=== PATIENT | female | born 1935 | race Caucasian/White ===

== ENCOUNTER → 2016-12-21 | Outpatient (CLI) | payer MEDICARE ==
[~2016-12-21] MED LIST: AVELOX400 MG PO; CALCIUM 500 + D1 TAB PO; CENTRUM SILVER1 TA2 PO; DARVOCET N 1001 TAB PO; DAYPRO600 M1 PO; DIOVAN HCT 12.51 TA2 PO; HYDROCODONE BIT1 T11 PO; MEDROL DOSEPAK4 MG PO; NORFLEX100 MG PO; PRAVACHOL40 MG PO; PREDNICOT20 MG PO; PROMETHAZINE D118 ML PO; TOPROL XL50 MG PO; TRAMADOL50 MG PO
== END | disposition home or self-care (01) ==
LOC: RAD 10:32
DX: Z13.820 Encounter for screening for osteoporosis (principal); Z78.0 Asymptomatic menopausal state; Z90.710 Acquired absence of both cervix and uterus

== ENCOUNTER 2017-12-21 12:48 | Emergency (ER) | payer MEDICARE ==
[~2017-12-21] VITALS: Ht 162.5 cm; Wt 81.6 kg
[2017-12-21 12:50] VITALS: BP 142/75
[2017-12-21] MEDS ORDERED: CEPHALEXIN500 M1 PO (13:32)
== END 2017-12-21 13:19 | disposition home or self-care (01) ==
LOC: ED 12:48
DX: L25.9 Unspecified contact dermatitis, unspecified cause (principal); Z88.0 Allergy status to penicillin; Z79.899 Other long term (current) drug therapy; Z90.710 Acquired absence of both cervix and uterus; Z90.49 Acquired absence of other specified parts of digestive tract

== ENCOUNTER → 2018-01-11 | Outpatient (CLI) | payer MEDICARE ==
[~2018-01-11] MED LIST changes: +CEPHALEXIN500 M1 PO
== END | disposition home or self-care (01) ==
LOC: CARD 07:20
DX: I35.0 Nonrheumatic aortic (valve) stenosis (principal); I34.0 Nonrheumatic mitral (valve) insufficiency

== ENCOUNTER → 2018-01-12 | Outpatient (CLI) | payer MEDICARE | END | disposition home or self-care (01) | LOC: US 14:39 | DX: M79.605 Pain in left leg (principal); R60.0 Localized edema ==

== ENCOUNTER 2019-10-05 20:02 | Emergency (ER) | payer MEDICARE ==
[~2019-10-05] VITALS: Ht 160 cm; Wt 77.1 kg
[2019-10-05 22:50] VITALS: BP 147/67
== END 2019-10-06 01:24 | disposition home or self-care (01) ==
LOC: ED 20:02
DX: S92.352A Displaced fracture of fifth metatarsal bone, left foot, initial encounter for closed fracture (principal); I10 Essential (primary) hypertension; M19.90 Unspecified osteoarthritis, unspecified site; E78.00 Pure hypercholesterolemia, unspecified; Z88.0 Allergy status to penicillin; Z79.899 Other long term (current) drug therapy; X58.XXXA Exposure to other specified factors, initial encounter; Y93.89 Activity, other specified; Y92.89 Other specified places as the place of occurrence of the external cause; Y99.8 Other external cause status

== ENCOUNTER 2021-06-03 17:58 | Emergency (ER) | payer MEDICARE ==
[2021-06-03 18:11] VITALS: BP 156/53
== END 2021-06-03 21:28 | disposition home or self-care (01) ==
LOC: ED 17:58
DX: M25.562 Pain in left knee (principal); Z88.0 Allergy status to penicillin; Z79.899 Other long term (current) drug therapy; Z90.710 Acquired absence of both cervix and uterus

== ENCOUNTER 2022-08-22 13:03 | Emergency (ER) | payer MEDICARE ==
[~2022-08-22] VITALS: Ht 160 cm; Wt 82.6 kg
[2022-08-22 13:57] VITALS: BP 105/49
[2022-08-22] MEDS ORDERED: CILOXAN 5 ML5 M1 OP (14:09)
== END 2022-08-22 14:24 | disposition home or self-care (01) ==
LOC: ED 13:03
DX: B30.3 Acute epidemic hemorrhagic conjunctivitis (enteroviral) (principal); I10 Essential (primary) hypertension; M19.90 Unspecified osteoarthritis, unspecified site; E78.00 Pure hypercholesterolemia, unspecified; G62.9 Polyneuropathy, unspecified; Z88.0 Allergy status to penicillin; Z90.710 Acquired absence of both cervix and uterus; Z98.51 Tubal ligation status; Z90.49 Acquired absence of other specified parts of digestive tract; Z98.890 Other specified postprocedural states

== ENCOUNTER 2024-01-21 10:29 | Emergency (ER) | payer MEDICARE ==
[~2024-01-21] VITALS: Ht 162.5 cm; Wt 82.6 kg
[~2024-01-21 10:29] MED LIST changes: +CILOXAN 5 ML5 M1 OP
[2024-01-21 10:57] VITALS: BP 130/74
[2024-01-21] MEDS ORDERED: Synthroid,Levo25 MCG PO (11:02)
[2024-01-21] MEDS ORDERED: SODIUM CHLORIDE 0.9% 1,000 ML IV ONE (11:10)
[2024-01-21] MEDS ORDERED: Albuterol Sulfate 2.5 MG/3 ML VIAL NEB ONE (11:15)
[2024-01-21 11:47] LABS: BASO # 0.1 10*3/uL (0.0-0.1); BASO % 0.6 % (0.0-1.0); EOS # 0.2 10*3/uL (0.0-0.4); EOS % 2.2 % (1.0-4.0); HEMATOCRIT 49.9 % (37.0-47.0); MEAN CELL VOLUME 96.5 fl (81.0-99.0); MEAN CORPUSCULAR HGB 31.9 pg (27.0-31.0); MEAN CORPUSCULAR HGB CONC 33.1 g/dl (33.0-37.0); MEAN PLATELET VOLUME 9.3 fl (9.6-12.3); MONO % 10.5 % (3.0-9.0); NEUT # 5.3 10*3/uL (2.3-7.9); NEUT % 58.3 % (47.0-73.0); PLATELET COUNT AUTOMATED 209 10*3/uL (130-400); RED BLOOD COUNT 5.17 10*6/uL (4.10-5.10); RED CELL DISTRI WIDTH 13.2 % (0-14.5); WHITE BLOOD COUNT 9.1 10*3/uL (4.8-10.8)
[2024-01-21 12:09] LABS: BUN 18 mg/dl (9-23); CHLORIDE 104 mmol/L (98-107); POTASSIUM 3.7 mmol/L (3.4-5.1)
[2024-01-21] MEDS ORDERED: VENT7GM INH (12:23)
[2024-01-21] MEDS ORDERED: LEVOFLOXACIN500 MG PO (12:23)
[2024-01-21] MEDS ORDERED: LEVOFLOXACIN 100 ML IV ONE (12:45)
[2024-01-27] MEDS ORDERED: ROBITUSSIN DM 101 OZ PO (11:45)
[2024-01-27] MEDS ORDERED: ZITHROMAX250 MG PO (11:45)
[2024-01-27] MEDS ORDERED: PREDNISONE10 MG PO (11:45)
== END 2024-01-21 12:30 | disposition home or self-care (01) ==
LOC: ED 10:29
PROVIDERS: Emergency Medicine
DX: J98.4 Other disorders of lung (principal); Z20.822 Contact with and (suspected) exposure to COVID-19; R06.02 Shortness of breath; I10 Essential (primary) hypertension; E03.9 Hypothyroidism, unspecified; M19.90 Unspecified osteoarthritis, unspecified site; E78.00 Pure hypercholesterolemia, unspecified; Z88.0 Allergy status to penicillin; Z90.710 Acquired absence of both cervix and uterus; Z98.890 Other specified postprocedural states; Z90.49 Acquired absence of other specified parts of digestive tract

== ENCOUNTER 2024-08-17 16:41 | Emergency (ER) | payer MEDICARE ==
[~2024-08-17] VITALS: Ht 162.5 cm; Wt 81.6 kg
[~2024-08-17 16:41] MED LIST changes: +LEVOFLOXACIN500 MG PO; +PREDNISONE10 MG PO; +ROBITUSSIN DM 101 OZ PO; +Synthroid,Levo25 MCG PO; +VENT7GM INH; +ZITHROMAX250 MG PO
[2024-08-17 16:52] VITALS: BP 117/64
[2024-08-17 17:16] LABS: BASO % 0.7 % (0.0-1.0); EOS # 0.2 10*3/uL (0.0-0.4); EOS % 3.9 % (1.0-4.0); HEMATOCRIT 42.9 % (37.0-47.0); MEAN CELL VOLUME 95.8 fl (81.0-99.0); MEAN CORPUSCULAR HGB 31.9 pg (27.0-31.0); MEAN CORPUSCULAR HGB CONC 33.3 g/dl (33.0-37.0); MEAN PLATELET VOLUME 9.2 fl (9.6-12.3); MONO # 0.7 10*3/uL (0.1-1.0); MONO % 12.4 % (3.0-9.0); NEUT # 2.6 10*3/uL (2.3-7.9); NEUT % 43.9 % (47.0-73.0); PLATELET COUNT AUTOMATED 146 10*3/uL (130-400); RED BLOOD COUNT 4.48 10*6/uL (4.10-5.10); RED CELL DISTRI WIDTH 13.3 % (0-14.5); WHITE BLOOD COUNT 5.9 10*3/uL (4.8-10.8)
[2024-08-17 17:28] LABS: ACT PARTIAL THROMBO TIME 26.8 SECONDS (20.0-32.1)
[2024-08-17 17:37] LABS: BUN 15 mg/dl (9-23); CHLORIDE 103 mmol/L (98-107); POTASSIUM 3.5 mmol/L (3.4-5.1)
[2024-08-17] MEDS ORDERED: Acetaminophen/Oxycodone 5 MG/325 MG TABLET PO ONE (18:25)
[2024-08-17] MEDS ORDERED: Dexamethasone Sodium Phospha 20 MG/5 ML VIAL IM ONE (18:25)
[2024-08-17] MEDS ORDERED: PERCOCET 5-3251 EACH PO (18:41)
[2024-08-17] MEDS ORDERED: MEDROL DOSEPAK4 MG PO (18:41)
[2024-08-17] MEDS ORDERED: MAGNESIUM OXIDE 400 MG TAB PO ONE (18:45)
== END 2024-08-17 18:48 | disposition home or self-care (01) ==
LOC: ED 16:41
PROVIDERS: Internal Medicine
DX: M19.09 Primary osteoarthritis, other specified site (principal); M79.605 Pain in left leg; E83.42 Hypomagnesemia; Z88.0 Allergy status to penicillin; Z79.899 Other long term (current) drug therapy; Z98.890 Other specified postprocedural states; Z90.710 Acquired absence of both cervix and uterus; Z96.651 Presence of right artificial knee joint; Z90.49 Acquired absence of other specified parts of digestive tract

== ENCOUNTER 2025-02-01 12:41 | Emergency (ER) | payer MEDICARE ==
[~2025-02-01] VITALS: Ht 160 cm; Wt 77.1 kg
[~2025-02-01 12:41] MED LIST changes: +PERCOCET 5-3251 EACH PO
[2025-02-01 12:53] VITALS: BP 124/79
[2025-02-01 13:38] LABS: BASO # 0.1 10*3/uL (0.0-0.1); BASO % 0.7 % (0.0-1.0); EOS # 0.3 10*3/uL (0.0-0.4); EOS % 4.2 % (1.0-4.0); MEAN CELL VOLUME 96.8 fl (81.0-99.0); MEAN CORPUSCULAR HGB 31.6 pg (27.0-31.0); MEAN PLATELET VOLUME 9.3 fl (9.6-12.3); MONO # 1.1 10*3/uL (0.1-1.0); MONO % 15.4 % (3.0-9.0); NEUT # 3.1 10*3/uL (2.3-7.9); NEUT % 46.1 % (47.0-73.0); NUCLEATED RED BLOOD CELL 0.0 % (0.0-0.0); NUCLEATED RED BLOOD CELL 0.0 10*3/uL (0.0-0.0); PLATELET COUNT AUTOMATED 129 10*3/uL (130-400); RED CELL DISTRI WIDTH 13.2 % (0-14.5)
[2025-02-01 13:58] LABS: BUN 18 mg/dl (9-23); CPK 37 U/L (34-171)
[2025-02-01 15:40] LABS: BILIRUBIN Negative (Negative); BLOOD Negative (Negative); CLARITY Clear (Clear); COLOR Yellow (Yellow); KETONE Negative (Negative); LEUKO ESTERASE 1+ (Negative); NITRITE Negative (Negative); PH 7.0 (4.5-8.0); SPECIFIC GRAVITY 1.015 (1.001-1.030); UROBILINOGEN 1.0 E.U./dl (0.0-1.0)
[2025-02-01 16:22] LABS: BACTERIA 1+; EPITHELIAL CELLS 16-20; WBC 21-30 wbc/hpf (0-5)
[2025-02-01] MEDS ORDERED: Meclizine25 MG PO (16:53)
[2025-02-01] MEDS ORDERED: Ondansetron4 MG PO (16:53)
[2025-02-01] MEDS ORDERED: MACROBID100 M1 PO (16:53)
== END 2025-02-01 17:00 | disposition home or self-care (01) ==
LOC: ED 12:41
PROVIDERS: Emergency Medicine
DX: R42 Dizziness and giddiness (principal); N39.0 Urinary tract infection, site not specified; I10 Essential (primary) hypertension; M19.90 Unspecified osteoarthritis, unspecified site; E78.00 Pure hypercholesterolemia, unspecified; Z90.710 Acquired absence of both cervix and uterus; Z96.651 Presence of right artificial knee joint; Z88.0 Allergy status to penicillin